=== PATIENT | male | born 1970 | race African-American/Black ===

== ENCOUNTER 2020-04-26 18:50 | Emergency (ER) | payer OTHER ==
[~2020-04-26] VITALS: Ht 182.9 cm; Wt 106.6 kg
--- NOTE | 2020-04-26 19:00 | NUR ---
ED Nurse Note: patient walked into ED from home c/o burning urination and discomfort around his groin area for 3 days. Pt is AOx4, VSS, on RA, afebrile on triage.
[2020-04-26 19:05] VITALS: BP 131/82
--- NOTE | 2020-04-26 19:08 | NUR ---
ED Nurse Note: ERPA at bedside.
[2020-04-26] MEDS ORDERED: Bicillin LA 2.4MMU/4ML SYR IM ONE ×2 (19:15→19:44)
[2020-04-26] MEDS ORDERED: Lidocaine 1% MPF 10mg/ml 5ml INJ ONE (19:15)
--- NOTE | 2020-04-26 19:16 | NUR ---
ED Nurse Note: report given to REMIGIO Hawkins for continuity of care.
[2020-04-26] MEDS ORDERED: VIBRAMYCIN100 MG ORAL (19:21)
--- NOTE | 2020-04-26 19:21 | Emergency Room Report ---
History of Present Illness General Chief Complaint: Male Urogenital Problems Source: Patient Present Illness HPI 49 YO Male presents to the ED c/o 05/17 in severity Dysuria x 3 day(s). Patient denies penile discharge. Patient reports unprotected intercourse with partners who presumptively may have STD. Patient is requesting STD treatment. Patient reports that his partner also is complaining of a rash on her foot and requesting syphilis treatment and therefore he is requesting it as well. He denies fevers or chills. He denies abdominal pain or tenderness, hematuria, testicular pain or tenderness. Patient denies joint pain. No other aggravating or relieving factors at this time. Allergies: Coded Allergies: No Known Allergies (Unverified , 04/26/20) COVID-19 Screening Contact w/high risk pt: No Recent Travel to affected area: No Experienced COVID-19 symptoms?: No COVID-19 Testing performed SHELLACKER: No Patient History Past Medical History: see triage record Past Surgical History: none Pertinent Family History: none Reviewed Nursing Documentation: PMH: Agreed; PSxH: Agreed Nursing Documentation-PMH Past Medical History: No History, Except For Review of Systems All Other Systems: negative except mentioned in HPI Physical Exam Vital Signs Date Time Temp Pulse Resp B/P (MAP) Pulse Ox O2 Delivery O2 Flow Rate FiO2 04/26/20 18:58 98.6 83 17 131/82 (98) 97 Room Air Sp02 EP Interpretation: reviewed, normal General Appearance: no apparent distress, alert, GCS 15, non-toxic Head: normocephalic, atraumatic Eyes: bilateral eye normal inspection, bilateral eye PERRL ENT: hearing grossly normal, normal voice Neck: full range of motion Respiratory: lungs clear, normal breath sounds, speaking full sentences Cardiovascular #1: regular rate, rhythm Gastrointestinal: normal bowel sounds, non tender, soft, non-distended Rectal: deferred Genitourinary: normal inspection, no CVA tenderness, deferred - by pt. Musculoskeletal: normal range of motion, gait/station normal, non-tender Neurologic: alert, motor strength/tone normal, oriented x3, sensory intact, responsive, speech normal Psychiatric: judgement/insight normal Skin: no rash Lymphatic: no adenopathy Medical Decision Making PA Attestation Dr. Alcocer is my supervising Physician whom patient management has been discussed with. Diagnostic Impression: Primary Impression: Contact with or exposure to venereal diseases ER Course 49 YO Male presents to the ED c/o 05/17 in severity Dysuria x 3 day(s). Patient denies penile discharge. Patient reports unprotected intercourse with partners who presumptively may have STD. Patient is requesting STD treatment. Patient reports that his partner also is complaining of a rash on her foot and requesting syphilis treatment and therefore he is requesting it as well. He denies fevers or chills. He denies abdominal pain or tenderness, hematuria, testicular pain or tenderness. Patient denies joint pain. No other aggravating or relieving factors at this time. Ddx considered but are not limited to UTi , Urethritis, LGV, STI, Stone, Cystitis, prostatitis Vital signs: are WNL, pt. is afebrile H&PE are most consistent with Urethritis ORDERS: None required at this time pt. being tx'd presumptively ED INTERVENTIONS: -250mg Rocephin IM -2.4 million units PCN -I do not identify an emergent condition at this time. With current presentation , pt. is stable for close outpatient follow up and conservative treatment. D/ w pt. to return promptly to ED with worsening or new symptoms.- Pt. verbalizes' understanding and agreement with proposed treatment plan. DISCHARGE: At this time pt. is stable for d/c to home. Will provide printed patient care instructions, and any necessary prescriptions. Care plan and follow up instructions have been discussed with the patient prior to discharge. Last Vital Signs Date Time Temp Pulse Resp B/P (MAP) Pulse Ox O2 Delivery O2 Flow Rate FiO2 04/26/20 19:05 98.6 17 131/82 97 Room Air 04/26/20 18:58 83 Disposition: HOME, SELF-CARE Condition: Stable Scripts Doxycycline Hyclate* (VIBRAMYCIN*) 100 Mg Capsule 100 MG ORAL EVERY 12 HOURS for 7 Days, #14 CAP 0 Refills Prov: Ivonne Couch 04/26/20 Patient Instructions: Urethritis, Adult Additional Instructions: Take medications as directed. MAKE SURE YOUR PARTNERS GET TREATED WITH ANTIBIOTICS to prevent becoming re- infected No intercourse for 7-10 days, as you are infectious and can spread the bacterial infection. Follow up with PCP in 3-5 days Return sooner to ED if new symptoms occur, or current symptoms become Ivonne Couch Apr 26, 2020 19:21
[2020-04-26 19:59] VITALS: BP 131/82
--- NOTE | 2020-04-26 19:59 | NUR ---
ED Nurse Note: Pt cleared by health care Provider for discharge. DC instructions/prescription was given and explained to pt and verbalized understanding of teachings. All medical deviecs such as ID band removed. Pt is AAO x4, ambulatory and left with all personal belongings.
== END 2020-04-26 19:59 | disposition home or self-care (01) ==
LOC: EMR 19:39
DX: Z20.2 Contact with and (suspected) exposure to infections with a predominantly sexual mode of transmission (principal)
CPT/HCPCS: 96372; J0696; Z7502; 99283